=== PATIENT | female | born 1960 | race Two or more races ===

== ENCOUNTER → 2019-01-30 | Emergency (ER) | payer OTHER ==
[~2019-01-30] VITALS: Ht 154.9 cm; Wt 75.7 kg
[~2019-01-30] MED LIST: CRESTO; HYZAAR 100-12.1 EACH; ZANTAC300 MG; [UNRECOGNIZED DRUG - OTHER]
== END | disposition designated cancer center or children's hospital (05) ==
LOC: ER 04:20
DX: I60.8 Other nontraumatic subarachnoid hemorrhage (principal)

== ENCOUNTER 2020-08-30 14:39 | Outpatient (CLI) | payer OTHER | END 2020-08-30 14:53 | disposition home or self-care (01) | LOC: RAD 14:39 | PROVIDERS: ATTEND Orthopaedic Surgery | DX: M65.811 Other synovitis and tenosynovitis, right shoulder (principal); M25.511 Pain in right shoulder ==

== ENCOUNTER 2020-10-26 10:06 | Outpatient (CLI) | payer OTHER | END 2020-10-26 10:29 | disposition home or self-care (01) | LOC: LAB 10:06 | PROVIDERS: ATTEND Orthopaedic Surgery | DX: E83.42 Hypomagnesemia (principal); M85.89 Other specified disorders of bone density and structure, multiple sites; E56.1 Deficiency of vitamin K ==

== ENCOUNTER 2022-04-18 05:09 | Emergency (ER) | payer OTHER ==
[~2022-04-18] VITALS: Ht 154.9 cm; Wt 76.2 kg
[2022-04-18] MEDS ORDERED: DECADRON4 MG PO (10:00)
[2022-04-18] MEDS ORDERED: NABUMETONE750 MG PO (10:00)
== END 2022-04-18 10:48 | disposition home or self-care (01) ==
LOC: ER 05:09
DX: K81.9 Cholecystitis, unspecified (principal)

== ENCOUNTER 2023-12-31 07:05 | Outpatient (CLI) | payer OTHER ==
[~2023-12-31 07:05] MED LIST changes: +DECADRON4 MG PO; +NABUMETONE750 MG PO
[2023-12-31 09:09] LABS: ALBUMIN 3.7 gm/dL (3.4-5.0); BILIRUBIN TOTAL 1.01 mg/dL (0.3-1.2); CALCIUM 9.1 mg/dL (8.5-10.1); CREATININE SERUM 0.76 mg/dL (0.55-1.02); GFR 77.11; GLOBULINA 3.1 G/DL (2.4-3.5); MAGNESIUM 2.2 mg/dL (1.8-2.4); PHOSPHOROUS 3.3 mg/dL (2.5-4.9); POTASSIUM 3.83 mEq/L (3.5-5.1); TOTAL PROTEIN 6.8 gm/dL (6.4-8.2)
[2024-01-01 13:11] LABS: CALCIUM IONIZED 5.2 mg/dL (4.5-5.6)
[2024-01-06 11:11] LABS: VITAMIN K 0.54 ng/mL (0.10-2.20)
== END 2023-12-31 07:19 | disposition home or self-care (01) ==
LOC: LAB 07:05
PROVIDERS: ATTEND Orthopaedic Surgery
DX: E55.9 Vitamin D deficiency, unspecified (principal); M85.9 Disorder of bone density and structure, unspecified; E56.1 Deficiency of vitamin K; E21.3 Hyperparathyroidism, unspecified; E88.89 Other specified metabolic disorders; M81.8 Other osteoporosis without current pathological fracture

== ENCOUNTER 2024-04-20 16:16 | Emergency (ER) | payer OTHER ==
[~2024-04-20] VITALS: Ht 167.6 cm; Wt 68.5 kg
[2024-04-20] MEDS ORDERED: TENORMIN25 MG (16:40)
[2024-04-20 16:41] VITALS: BP 132/80; O2SAT 96
[2024-04-20] MEDS ORDERED: GUAIFENESIN/DEXTROMETHORPHAN 10ML BLIST.PACK PO ONE (17:30)
[2024-04-20] MEDS ORDERED: DEXAMETHASONE SODIUM PHOSPHATE 4 MG/ML VIAL IM ONE (17:45)
[2024-04-20 17:49] LABS: HEMATOCRIT 43.3 % (36.0-45.00); HEMOGLOBIN 14.5 g/dL (12.0-15.00); MEAN CELL VOLUME 87.4 fL (80.00-100.00); MEAN CORPUSCULAR HEMOGLOBIN 29.3 pg (27.00-32.0); MEAN CORPUSCULAR HGB CONC 33.5 g/dl (32.0-36.0); PLATELET COUNT 249 K/uL (150-450); RED BLOOD COUNT 4.95 M/uL (4.00-6.00); RED CELL DISTRIBUTION WIDTH 14.2 % (11.5-14.5)
== END 2024-04-20 20:27 | disposition home or self-care (01) ==
LOC: ER 16:18
PROVIDERS: Nurse Practitioner Family
DX: J06.9 Acute upper respiratory infection, unspecified (principal); R05.9 Cough, unspecified; Z20.822 Contact with and (suspected) exposure to COVID-19; I10 Essential (primary) hypertension

== ENCOUNTER 2024-05-30 09:30 | Emergency (ER) | payer OTHER ==
[~2024-05-30] VITALS: Ht 154.9 cm; Wt 72.6 kg
[~2024-05-30 09:30] MED LIST changes: +TENORMIN25 MG
[2024-05-30 10:04] VITALS: BP 121/82; O2SAT 100
[2024-05-30] MEDS ORDERED: ACIPHEX20 MG (10:06)
[2024-05-30] MEDS ORDERED: CRESTOR40 MG PO (10:06)
== END 2024-05-30 12:29 | disposition home or self-care (01) ==
LOC: ER 09:33
DX: B02.9 Zoster without complications (principal); I10 Essential (primary) hypertension